=== PATIENT | female | born 1995 | race Two or more races ===

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

== ENCOUNTER 2019-10-10 16:03 | Emergency (ER) | payer SELFPAY | END 2019-10-10 18:29 | disposition left against medical advice (07) | LOC: ER 16:03 | DX: H57.89 Other specified disorders of eye and adnexa (principal); Z53.21 Procedure and treatment not carried out due to patient leaving prior to being seen by health care provider ==